=== PATIENT | female | born 1995 | race Caucasian/White ===

== ENCOUNTER 2016-07-29 10:07 | Emergency (ER) | payer MEDICAID ==
[~2016-07-29] VITALS: Ht 160 cm; Wt 54.4 kg
[~2016-07-29 10:07] MED LIST: COUGH SYRUP; TAPAZOLE5 MG PO
[2016-07-29 10:12] VITALS: BP 130/87
--- NOTE | 2016-07-29 10:23 | NUR ---
PATIENT PRESENTS TO ED WITH UNDER EYELID REDNESS, BURNING SENSATION, SNEEZING . PT DENIES INJURY, VISUAL CHANGES, DISCHARGE . DENIES N/V/D; SKIN IS PINK/WARM/DRY; AAOX4 WITH EVEN AND STEADY GAIT; LUNGS CLEAR BL; HR EVEN AND REGULAR; PT DENIES ANY FEVER, CP, SOB, OR COUGH AT THIS TIME; PATIENT STATES PAIN OF 3/10 AT THIS TIME; VSS; PATIENT POSITIONED FOR COMFORT; HOB ELEVATED; BEDRAILS UP X2; BED DOWN. ER MD MADE AWARE OF PT STATUS.
[2016-07-29 10:54] VITALS: BP 134/84
--- NOTE | 2016-07-29 10:54 | NUR ---
Patient discharged with v/s stable. PT STATES BASELINE HR TACHYCARDIC D/T HYPOTHYROIDISM, BUT DENIES ANY ACUTE DISTRESS AT THIS TIMEWritten and verbal after care instructions given and explained. Patient alert, oriented and verbalized understanding of instructions. Ambulatory with steady gait. All questions addressed prior to discharge. ID band removed. Patient advised to follow up with PMD. Rx of ARTIFICIAL TEARS & PEDRO 60MG TAB given. Patient educated on indication of medication including possible reaction and side effects. Opportunity to ask questions provided and answered.
== END 2016-07-29 10:54 | disposition home or self-care (01) ==
LOC: MED 10:08
DX: H10.13 Acute atopic conjunctivitis, bilateral (principal); R03.0 Elevated blood-pressure reading, without diagnosis of hypertension; E03.9 Hypothyroidism, unspecified

== ENCOUNTER 2016-12-24 23:36 | Emergency (ER) | payer MEDICAID ==
[~2016-12-24] VITALS: Ht 160 cm; Wt 54.9 kg
[~2016-12-24 23:36] MED LIST changes: -COUGH SYRUP; +TAP5 PO; -TAPAZOLE5 MG PO
[2016-12-24 23:41] VITALS: BP 132/79
--- NOTE | 2016-12-25 00:14 | NUR ---
Patient to OF.
--- NOTE | 2016-12-25 00:43 | NUR ---
Dr. Fox evaluating patient.
[2016-12-25 01:03] LABS: APPEARANCE,URINE CLEAR (CLEAR); BILIRUBIN,URINE NEGATIVE (NEGATIVE); BLOOD, URINE NEGATIVE (NEGATIVE); COLOR,URINE YELLOW (YELLOW); LEUKOCYTE ESTERASE ,URINE NEGATIVE (NEGATIVE); NITRITE, URINE NEGATIVE (NEGATIVE); UGLUCOSE NEGATIVE (NEGATIVE)
[2016-12-25 01:18] LABS: RBC,URINE 0-5 (RARE) /HPF (0-5); WBC,URINE 0-5 (RARE) /HPF (0-5)
[2016-12-25 02:05] VITALS: BP 125/82
--- NOTE | 2016-12-25 02:05 | NUR ---
Patient discharged with v/s stable. Written and verbal after care instructions given and explained. Patient alert, oriented and verbalized understanding of instructions. Ambulatory with steady gait. All questions addressed prior to discharge. ID band removed. Patient advised to follow up with PMD. Rx of Flagyl given. Patient educated on indication of medication including possible reaction and side effects. Opportunity to ask questions provided and answered.
[2016-12-28 09:28] LABS: CHLAMYDIA TRACHOMATIS AMP DNA Negative (Negative)
== END 2016-12-25 02:05 | disposition home or self-care (01) ==
LOC: MED 23:36
DX: N76.0 Acute vaginitis (principal); B96.89 Other specified bacterial agents as the cause of diseases classified elsewhere
CPT/HCPCS: 36415; 81001; 81025; 87086; 87491; 99284

== ENCOUNTER 2017-05-31 08:06 | Emergency (ER) | payer MEDICAID ==
[~2017-05-31] VITALS: Ht 160 cm; Wt 57.6 kg
[2017-05-31 08:13] VITALS: BP 118/76
--- NOTE | 2017-05-31 08:24 | NUR ---
Pt placed in chair E.
--- NOTE | 2017-05-31 08:26 | NUR ---
21/f BIB SELF C/O PAINFUL URINATION X1 1/2 WEEK ; WITH DRIBBLING AND RETENTION. PT STATES DISCOMFORT TO PERINEUM AT THIS TIME. HX HYPERTHYROIDISM. DENIES N/V/D; SKIN IS PINK/WARM/DRY; AAOX4 WITH EVEN AND STEADY GAIT; LUNGS CLEAR BL. PATIENT STATES PAIN OF 0/10 AT THIS TIME.
--- NOTE | 2017-05-31 08:43 | NUR ---
Patient being evaluated by DR ACOSTA at [facility].
[2017-05-31 08:54] VITALS: BP 117/93
--- NOTE | 2017-05-31 08:54 | NUR ---
Patient discharged with v/s stable. Written and verbal after care instructions given and explained. Patient alert, oriented and verbalized understanding of instructions. Ambulatory with steady gait. All questions addressed prior to discharge. ID band removed. Patient advised to follow up with PMD. Rx of PYRIDIUM & CIPRO given. Patient educated on indication of medication including possible reaction and side effects. Opportunity to ask questions provided and answered.
== END 2017-05-31 08:54 | disposition home or self-care (01) ==
LOC: MED 08:06
DX: N39.0 Urinary tract infection, site not specified (principal); E05.90 Thyrotoxicosis, unspecified without thyrotoxic crisis or storm
CPT/HCPCS: 81002; 81025; 87086; 87186; 99283

== ENCOUNTER 2017-10-03 00:24 | Emergency (ER) | payer MEDICAID ==
[~2017-10-03] VITALS: Ht 160 cm; Wt 58.1 kg
[2017-10-03 00:27] VITALS: BP 129/71
[2017-10-03] MEDS ORDERED: KETOROLAC 30 MG/ML VIAL IM ONE (01:35)
[2017-10-03 02:28] VITALS: BP 127/76
== END 2017-10-03 02:28 | disposition home or self-care (01) ==
LOC: MED 00:24
DX: S83.91XA Sprain of unspecified site of right knee, initial encounter (principal); S63.501A Unspecified sprain of right wrist, initial encounter; E05.90 Thyrotoxicosis, unspecified without thyrotoxic crisis or storm; W18.40XA Slipping, tripping and stumbling without falling, unspecified, initial encounter; Y93.89 Activity, other specified; Y92.098 Other place in other non-institutional residence as the place of occurrence of the external cause; Y99.8 Other external cause status
CPT/HCPCS: 73110; 73562; 96372; 99284; J1885; Q0092

== ENCOUNTER 2017-10-17 23:32 | Emergency (ER) | payer MEDICAID ==
[~2017-10-17] VITALS: Ht 160 cm; Wt 55.8 kg
[2017-10-17 23:38] VITALS: BP 126/74
--- NOTE | 2017-10-17 23:42 | NUR ---
PT AMBULATED TO LOBBY WITH VSS.
--- NOTE | 2017-10-18 00:17 | NUR ---
AMBULATED TO ER BED 2
--- NOTE | 2017-10-18 00:17 | NUR ---
PT PRESENTED ER WITH RASH AND SWELLING ON FINGERS. PT STATED THAT SHE GOT HER NAILS DONE RECENTLY AND FELT SOME ITCHING ON HER FINGERS. PT HAD SOME BURNING AND ITCHING X 3 DAYS. PT HAS KNA AND MEDICAL HX OF HYPERTHYRIODISM; SKIN IS PINK/WARM/DRY; AAOX4 WITH EVEN AND STEADY GAIT; PATIENT STATES PAIN OF 0/10 AT THIS TIME; VSS; PATIENT POSITIONED FOR COMFORT; HOB ELEVATED; BEDRAILS UP X2; BED DOWN. ER MD MADE AWARE OF PT STATUS.
[2017-10-18 01:28] VITALS: BP 125/72
--- NOTE | 2017-10-18 01:28 | NUR ---
Patient discharged with v/s stable. Written and verbal after care instructions given and explained. Patient alert, oriented and verbalized understanding of instructions. Ambulatory with steady gait. All questions addressed prior to discharge. ID band removed. Patient advised to follow up with PMD. Rx of KEFLEX, [facility] HYDROCORTISONE given. Patient educated on indication of medication including possible reaction and side effects. Opportunity to ask questions provided and answered.
== END 2017-10-18 01:28 | disposition home or self-care (01) ==
LOC: MED 23:32
DX: L25.9 Unspecified contact dermatitis, unspecified cause (principal); E05.90 Thyrotoxicosis, unspecified without thyrotoxic crisis or storm; Z79.899 Other long term (current) drug therapy
CPT/HCPCS: 81002; 81025; 99283

== ENCOUNTER 2019-01-31 22:32 | Emergency (ER) | payer MEDICAID ==
[~2019-01-31] VITALS: Ht 160 cm; Wt 55.8 kg
[2019-01-31 22:39] VITALS: BP 126/83
--- NOTE | 2019-01-31 22:41 | NUR ---
PT AMBULATED TO ER BED 9
--- NOTE | 2019-01-31 22:44 | NUR ---
DR. LAGUNAS BEDSIDE EVALUATING PT
--- NOTE | 2019-01-31 22:46 | NUR ---
PATIENT PRESENTS TO ED PAIN TO RIGHT EAR. PT STATES PAIN IS ON HER TOP EARING. PT STATES IT MAY HAVE GOTTEN CAUGHT ON SOMETHING. EAR IS RED AND INFLAMED. PT DENIES RINGING OR HEARING LOSS. DENIES N/V/D; SKIN IS PINK/WARM/DRY; AAOX4 WITH EVEN AND STEADY GAIT; LUNGS CLEAR BL; HR EVEN AND REGULAR; PT DENIES ANY FEVER, CP, SOB, OR COUGH AT THIS TIME; PATIENT STATES PAIN OF 8/10 AT THIS TIME; VSS; PATIENT POSITIONED FOR COMFORT; HOB ELEVATED; BED DOWN. ER MD MADE AWARE OF PT STATUS.
[2019-01-31 22:56] VITALS: BP 126/83
--- NOTE | 2019-01-31 22:57 | NUR ---
Patient discharged with v/s stable. Written and verbal after care instructions given and explained. Patient alert, oriented and verbalized understanding of instructions. Ambulatory with steady gait. All questions addressed prior to discharge. ID band removed. Patient advised to follow up with PMD. Rx of MOTRIN AND KEFLEX given. Patient educated on indication of medication including possible reaction and side effects. Opportunity to ask questions provided and answered.
== END 2019-01-31 22:57 | disposition home or self-care (01) ==
LOC: MED 22:32
DX: H60.11 Cellulitis of right external ear (principal); E05.90 Thyrotoxicosis, unspecified without thyrotoxic crisis or storm; Z79.899 Other long term (current) drug therapy
CPT/HCPCS: 99283

== ENCOUNTER 2019-02-26 05:48 | Emergency (ER) | payer MEDICAID ==
[~2019-02-26] VITALS: Ht 160 cm; Wt 55.8 kg
[2019-02-26 05:50] VITALS: BP 127/80
--- NOTE | 2019-02-26 05:50 | NUR ---
TO BED # 04 AMBULATORY
--- NOTE | 2019-02-26 05:55 | NUR ---
23 Y/O FEMALE C/O URINARY BURNING, LOWER ABD PAIN X YESTERDAY. PT STATES SHE HAS URINARY FREQ, BURNING SENSATION, LOWER ABD AND ABCK PAIN. DENIES ANY FEVER,CHILLS,N,V,D, OR BLOOD IN URINE. PT STATES SHE TOOK AZO OTC 1HR AGO. RATES PAIN LEVEL 8/10 AND DESCRIBES IT BURNING. A & O X4. STEADY GAIT. VSS. NKA. PMH: HYPERTHYROID.
--- NOTE | 2019-02-26 06:05 | NUR ---
ERMD AT BEDSIDE TO EVAL PT.
[2019-02-26] MEDS ORDERED: KETOROLAC 60 MG/2 ML VIAL IM ONE (06:10)
[2019-02-26 06:31] VITALS: BP 127/80
--- NOTE | 2019-02-26 06:31 | NUR ---
Patient discharged with v/s stable. Written and verbal after care instructions given and explained. Patient alert, oriented and verbalized understanding of instructions. Ambulatory with steady gait. All questions addressed prior to discharge. ID band removed. Patient advised to follow up with PMD. Rx of CIPRO, MOTRIN, AND PYRIDIUM given. Patient educated on indication of medication including possible reaction and side effects. Opportunity to ask questions provided and answered.
== END 2019-02-26 06:31 | disposition home or self-care (01) ==
LOC: MED 05:48
DX: N39.0 Urinary tract infection, site not specified (principal); E11.9 Type 2 diabetes mellitus without complications; Z79.899 Other long term (current) drug therapy
CPT/HCPCS: 96372; 99283; J1885

== ENCOUNTER 2019-03-29 22:33 | Emergency (ER) | payer MEDICAID ==
[~2019-03-29] VITALS: Ht 160 cm; Wt 55.8 kg
[2019-03-29 22:55] VITALS: BP 122/75
--- NOTE | 2019-03-29 22:58 | NUR ---
THROAT SWAB SENT TO LAB FOR STREP
--- NOTE | 2019-03-29 22:58 | NUR ---
TO LOBBY A/W BED , AMBULATORY
--- NOTE | 2019-03-30 02:01 | NUR ---
PATIENT ELOPED FROM FACILITY. DID NOT WANT TO WATI AND LEFT TO HOME. DISCHARGE INSTRUCTIONS NOT GIVEN TO PATIENT. DR. HARRINGTON NOTIFIED.
--- NOTE | 2019-03-30 02:01 | NUR ---
PATIENT STATES SHE IS UNWILLING TO WAIT ANY LONGER AND LEFT THE EMERGENCY DEPARTMENT AT THIS TIME.
== END 2019-03-30 02:01 | disposition left against medical advice (07) ==
LOC: MED 22:33
DX: M54.2 Cervicalgia (principal); E05.90 Thyrotoxicosis, unspecified without thyrotoxic crisis or storm; Z79.899 Other long term (current) drug therapy
CPT/HCPCS: 87081; 99283

== ENCOUNTER 2019-05-17 02:28 | Emergency (ER) | payer MEDICAID ==
[~2019-05-17] VITALS: Ht 160 cm; Wt 55.8 kg
[2019-05-17 02:35] VITALS: BP 125/77
--- NOTE | 2019-05-17 02:35 | NUR ---
PT ASSESSMENT COMPLETE. PT SEATED UPRIGHT IN BED. WILL CONTINUE TO MONITOR
--- NOTE | 2019-05-17 02:35 | NUR ---
PT AMBULATED BED #11.
[2019-05-17 03:02] LABS: APPEARANCE,URINE CLOUDY (CLEAR); BILIRUBIN,URINE NEGATIVE (NEGATIVE); BLOOD, URINE 3+ (NEGATIVE); COLOR,URINE YELLOW (YELLOW); LEUKOCYTE ESTERASE ,URINE 3+ (NEGATIVE); NITRITE, URINE NEGATIVE (NEGATIVE); UGLUCOSE NEGATIVE (NEGATIVE)
[2019-05-17 03:33] LABS: RBC,URINE TOO NUMEROUS TO COUN /HPF (0-5); WBC,URINE TOO MANY TO COUNT /HPF (0-5)
[2019-05-17] MEDS ORDERED: cefTRIAXone 1,000 MG in LIDOCAINE MPF 1% 2.1 ML IM ONE (03:35)
[2019-05-17] MEDS ORDERED: cefTRIAXone 1,000 MG VIAL ONE (03:41)
[2019-05-17] MEDS ORDERED: LIDOCAINE MPF 1% 5 ML ONE (03:41)
--- NOTE | 2019-05-17 03:57 | NUR ---
Patient discharged with v/s stable. Written and verbal after care instructions given and explained. Patient alert, oriented and verbalized understanding of instructions. Ambulatory with steady gait. All questions addressed prior to discharge. ID band removed. Patient advised to follow up with PMD. Rx of PYRIDIUM AND KEFLEX given. Patient educated on indication of medication including possible reaction and side effects. Opportunity to ask questions provided and answered.
== END 2019-05-17 03:57 | disposition home or self-care (01) ==
LOC: MED 02:28
DX: N39.0 Urinary tract infection, site not specified (principal); Z79.899 Other long term (current) drug therapy
CPT/HCPCS: 81001; 87086; 96372; 99283; J0696; J2001

== ENCOUNTER 2019-06-28 07:40 | Emergency (ER) | payer MEDICAID ==
[~2019-06-28] VITALS: Ht 160 cm; Wt 58.1 kg
[2019-06-28 07:46] VITALS: BP 142/83
--- NOTE | 2019-06-28 07:47 | NUR ---
PT AMBULATED TO BED 11, GIVEN URINE CUP.
--- NOTE | 2019-06-28 07:50 | NUR ---
23 Y/O FEMALE FROM HOME C/O NAUSEA AND VOMITING X 2 DAYS. STATES 8/10 CRAMPING PAIN TO ABD. DENIES DIARRHEA. ABD SOFT, FLAT, NONTENDER TO PALP. BOWEL SOUNDS PRESENT. STATES SHE HAS HAD LINGERING HEADACHE TO THE RT SIDE OF HEAD X 2 WKS. DENIES BLURRED VISION. LMP 06/27/19. HOB ELEVATED, X 1 SIDE RAIL RAISED. VSS MEDHX: HYPOTHYROIDISM ALLERGIES: NKA
--- NOTE | 2019-06-28 07:56 | NUR ---
DR KATE EXAMINING PT
[2019-06-28] MEDS ORDERED: ONDANSETRON 4 MG ODT PO ONE (08:00)
[2019-06-28] MEDS ORDERED: SUMAtriptan 6 MG/0.5 ML VIAL SUBQ ONE (08:00)
--- NOTE | 2019-06-28 08:32 | NUR ---
PT STATES SHE VOMITED AFTER RECEIVING MEDICATION. DENIES HEADACHE AT THIS TIME. DR KATE MADE AWARE
[2019-06-28] MEDS ORDERED: PROCHLORPERAZINE 10 MG/2 ML VIAL IVP ONE (08:35)
[2019-06-28] MEDS ORDERED: KETOROLAC 30 MG/ML VIAL IVP ONE (08:35)
[2019-06-28] MEDS ORDERED: NACL 0.9% 500 ML IV ONE (08:35)
--- NOTE | 2019-06-28 09:00 | NUR ---
DENIES NAUSEA/VOMITING AND HEADACHE AT THIS TIME
[2019-06-28 09:03] VITALS: BP 134/79
== END 2019-06-28 09:03 | disposition home or self-care (01) ==
LOC: MED 07:40
DX: G43.909 Migraine, unspecified, not intractable, without status migrainosus (principal); E03.9 Hypothyroidism, unspecified; Z79.899 Other long term (current) drug therapy
CPT/HCPCS: 81002; 81025; 96372; 96374; 96375; 99284; J0780; J1885; J3030; J7030; Q0162

== ENCOUNTER 2019-07-28 00:32 | Emergency (ER) | payer MEDICAID ==
[~2019-07-28] VITALS: Ht 157.5 cm; Wt 57.6 kg
[2019-07-28 00:40] VITALS: BP 139/88
--- NOTE | 2019-07-28 00:50 | NUR ---
PT EVALUATED BY ERMD. NO NURSING CARE PROVIDED.
--- NOTE | 2019-07-28 00:58 | NUR ---
Patient discharged with v/s stable. Written and verbal after care instructions given and explained. Patient verbalized understanding. Ambulatory with steady gait. All questions addressed prior to discharge. Advised to follow up with PMD.
== END 2019-07-28 00:58 | disposition home or self-care (01) ==
LOC: MED 00:32
DX: E05.90 Thyrotoxicosis, unspecified without thyrotoxic crisis or storm (principal); Z34.91 Encounter for supervision of normal pregnancy, unspecified, first trimester; Z79.899 Other long term (current) drug therapy
CPT/HCPCS: 99281

== ENCOUNTER 2019-08-20 20:59 | Emergency (ER) | payer MEDICAID ==
[~2019-08-20] VITALS: Ht 160 cm; Wt 57.6 kg
[2019-08-20 21:05] VITALS: BP 139/76
--- NOTE | 2019-08-20 21:30 | NUR ---
PT AMBULATED TO BED 12 WITH STEADY GAIT.
--- NOTE | 2019-08-20 21:50 | NUR ---
23 Y/O FEMALE PRESENTS TO ER WITH C/O EPIGASTRIC PAIN X 2 HRS 5/10 CRAMPING PAIN. PT STATES SHE WAS EATING A SNACK, AND BEGAN TO FEEL PAIN SHORTLY AFTER. PT IS 7 WEEKS . DENIES NAUSEA, VOMITING, DIARRHEA, SOB, COUGH. R/R EQUAL, AND UNLABORED. VSS. SIDE RAIL X1, BED IN LOW POSITION, WILL CONTINUE TO MONITOR. NKDA PMH: HYPERTHYROIDISM
[2019-08-20 22:00] LABS: BASOPHILS % (AUTO) 0.2 % (0.0-2.0); EOSINOPHILS % (AUTO) 0.1 % (0.0-4.0); HEMATOCRIT 39.9 % (36-48); HEMOGLOBIN 13.4 g/dL (12.0-16.0); LYMPHOCYTES # (AUTO) 1.9 K/uL (2.5-16.5); LYMPHOCYTES % (AUTO) 20.8 % (20.5-51.1); MEAN CORPUSCULAR HEMOGLOBIN 28 pg (27-31); MEAN CORPUSCULAR HGB CONC 34 g/dL (33-37); MEAN CORPUSCULAR VOLUME 83.8 fL (80-94); MONOCYTES # (AUTO) 0.8 K/uL (0.8-1.0); MONOCYTES % (AUTO) 8.5 % (1.7-9.3); NEUTROPHILS # (AUTO) 6.6 K/uL (1.8-7.7); NEUTROPHILS % (AUTO) 70.4 % (42.2-75.2); PLATELET COUNT (AUTO) 220 K/uL (140-450); RED BLOOD CELL COUNT(AUTO) 4.76 MIL/uL (4.20-5.40); RED CELL DISTRIBUTION WIDTH 13.9 % (11.6-13.7); WHITE BLOOD COUNT (AUTO) 9.4 K/uL (4.8-10.8)
--- NOTE | 2019-08-20 22:00 | NUR ---
US AT BEDSIDE
[2019-08-20 22:26] LABS: APPEARANCE,URINE CLEAR (CLEAR); BILIRUBIN,URINE NEGATIVE (NEGATIVE); BLOOD, URINE 1+ (NEGATIVE); COLOR,URINE YELLOW (YELLOW); LEUKOCYTE ESTERASE ,URINE NEGATIVE (NEGATIVE); NITRITE, URINE NEGATIVE (NEGATIVE); UGLUCOSE NEGATIVE (NEGATIVE)
[2019-08-20] MEDS ORDERED: FUROSEMIDE 100 MG/10 ML VIAL IVP ONE (22:45)
[2019-08-20 23:01] LABS: WBC,URINE 0-5 /HPF (0-5)
[2019-08-20 23:03] LABS: CARBON DIOXIDE 21.7 mmol/L (21-32); CREATININE 0.4 mg/dL (0.6-1.3); POTASSIUM 3.7 mmol/L (3.5-5.1)
[2019-08-21 00:12] VITALS: BP 139/76
== END 2019-08-21 00:08 | disposition home or self-care (01) ==
LOC: MED 20:59
DX: O26.891 Other specified pregnancy related conditions, first trimester (principal); R10.13 Epigastric pain; E07.9 Disorder of thyroid, unspecified; Z79.899 Other long term (current) drug therapy
CPT/HCPCS: 36415; 76801; 80048; 81001; 81025; 84702; 85025; 86900; 86901; 99284; Q0092

== ENCOUNTER 2020-10-13 18:30 | Emergency (ER) | payer MEDICAID ==
[~2020-10-13] VITALS: Ht 160 cm; Wt 63.5 kg
[2020-10-13 19:00] VITALS: BP 130/77
--- NOTE | 2020-10-14 01:45 | NUR ---
CALLED PT TO BED, PT HAS NO ANSWER. JOSE MADE AWARE
--- NOTE | 2020-10-14 01:55 | NUR ---
CALLED PT TO BED, PT HAS NO ANSWER. JOSE MADE AWARE
--- NOTE | 2020-10-14 02:00 | NUR ---
LEFT WITHOUT BEING SEEN BY DOCTOR
== END 2020-10-14 02:00 | disposition left against medical advice (07) ==
LOC: MED 18:30
DX: R10.11 Right upper quadrant pain (principal); Z53.21 Procedure and treatment not carried out due to patient leaving prior to being seen by health care provider
CPT/HCPCS: 81002; 81025; 99281; 99283

== ENCOUNTER 2020-11-30 08:54 | Emergency (ER) | payer MEDICAID ==
[~2020-11-30] VITALS: Ht 160 cm; Wt 63.0 kg
[2020-11-30 08:58] VITALS: BP 123/75
--- NOTE | 2020-11-30 09:05 | NUR ---
Patient ambulated to bed 07 with steady/even gait.
--- NOTE | 2020-11-30 09:11 | NUR ---
24 y/o F BIB self from home c/o epigastric pain x 2 days. Patient presents A&Ox4, ambulatory, reports pain began 2 days ago and states worsens after meals. Patient states 8/10, cramping/intermittent, non-radiating pain. Patient reports pain worsening after meals. Denies nausea, vomiting, diarrhea, chest pain, SOB, back pain, dysuria, urinary symptoms, fever, chills. States Pepto Bismol yesterday with minor relief to symptoms. Pt placed into a gown. VSS; respirations even/unlabored. Pt states [facility] facilit[facility] appt 12/30/2020. Bed locked in lowest position, side rails x 1, call light in reach. PMH: hyperthyroidism Meds/Allergies: Denies Sx:
[2020-11-30] MEDS ORDERED: ALUMINUM HYD/MAG/SIMETHICONE 30 ML UDC ONE (09:49)
[2020-11-30] MEDS ORDERED: DICYCLOMINE HCL LIQUID 10 MG/5 ML UDC ONE (09:49)
--- NOTE | 2020-11-30 09:54 | NUR ---
Lab at bedside
--- NOTE | 2020-11-30 09:54 | NUR ---
EMT at bedside for EKG
[2020-11-30] MEDS: DICYCLOMINE HCL LIQUID 20 MG, ALUMINUM HYD/MAG/SIMETHICONE 30 ML, LIDOCAINE VISCOUS 2% ... PO ONE ×3 (09:55)
[2020-11-30 10:05] LABS: BILIRUBIN,URINE NEGATIVE (NEGATIVE); BLOOD, URINE 2+ (NEGATIVE); COLOR,URINE YELLOW (YELLOW); LEUKOCYTE ESTERASE ,URINE 2+ (NEGATIVE); NITRITE, URINE NEGATIVE (NEGATIVE); UGLUCOSE NEGATIVE (NEGATIVE)
[2020-11-30 10:06] LABS: BASOPHILS % (AUTO) 0.3 % (0.0-2.0); HEMATOCRIT 44.3 % (36-48); HEMOGLOBIN 15.1 g/dL (12.0-16.0); LYMPHOCYTES # (AUTO) 1.2 K/uL (2.5-16.5); LYMPHOCYTES % (AUTO) 22.4 % (20.5-51.1); MEAN CORPUSCULAR HEMOGLOBIN 29 pg (27-31); MEAN CORPUSCULAR HGB CONC 34 g/dL (33-37); MONOCYTES # (AUTO) 0.4 K/uL (0.8-1.0); MONOCYTES % (AUTO) 8.1 % (1.7-9.3); NEUTROPHILS # (AUTO) 3.8 K/uL (1.8-7.7); NEUTROPHILS % (AUTO) 69.2 % (42.2-75.2); PLATELET COUNT (AUTO) 250 K/uL (140-450); RED BLOOD CELL COUNT(AUTO) 5.21 MIL/uL (4.20-5.40); RED CELL DISTRIBUTION WIDTH 13.1 % (11.6-13.7); WHITE BLOOD COUNT (AUTO) 5.4 K/uL (4.8-10.8)
[2020-11-30 10:13] LABS: APPEARANCE,URINE CLOUDY (CLEAR)
[2020-11-30 10:35] LABS: ALBUMIN 3.9 g/dL (3.4-5.0); AMYLASE 33 U/L (25-115); ANION GAP 13.4 (8-16); ASPARTATE AMINOTRANSFERASE 22 U/L (15-37); CHLORIDE 104 mmol/L (98-107); CREATININE 0.4 mg/dL (0.6-1.3); FREE T4 (FREE THYROXINE) 2.04 ng/dL (0.76-1.46); GFR ARICAN-AMERICAN 252 mL/min (>90); GLUCOSE 102 mg/dL (74-106); LIPASE 61 U/L (73-393); POTASSIUM 4.4 mmol/L (3.5-5.1); SODIUM SERUM 140 mmol/L (136-145); THYROID STIMULATING HORMONE < 0.01 uIU/mL (0.34-3.74); TOTAL BILIRUBIN 0.6 mg/dL (0.0-1.0); UREA NITROGEN, BLOOD 8 mg/dL (7-18)
--- NOTE | 2020-11-30 11:12 | NUR ---
EMT at bedside for repeat EKG
--- NOTE | 2020-11-30 11:22 | NUR ---
Dr. López is reevaluating patient at bedside
[2020-11-30] MEDS ORDERED: ALBU0.0912 IH (11:29)
[2020-11-30 11:32] VITALS: BP 117/76
== END 2020-11-30 11:40 | disposition home or self-care (01) ==
LOC: MED 08:54
DX: R10.13 Epigastric pain (principal); E07.9 Disorder of thyroid, unspecified
CPT/HCPCS: 36415; 80053; 81001; 81025; 82150; 83690; 84439; 84443; 84484; 85025; 87086; 93005; 99285

== ENCOUNTER 2022-01-16 04:38 | Emergency (ER) | payer MEDICAID ==
[~2022-01-16] VITALS: Ht 160 cm; Wt 66.7 kg
[2022-01-16 04:42] VITALS: BP 108/73
--- NOTE | 2022-01-16 04:45 | NUR ---
PT TO BED 11
[2022-01-16] MEDS ORDERED: FAMOTIDINE 20 MG TAB PO ONE (05:05)
[2022-01-16] MEDS ORDERED: ONDANSETRON 4 MG ODT PO ONE (05:05)
[2022-01-16] MEDS ORDERED: FAMO-90 PO (05:34)
[2022-01-16] MEDS ORDERED: ONDA-188 SL (05:34)
[2022-01-16 05:49] VITALS: BP 108/73
--- NOTE | 2022-01-16 05:49 | NUR ---
Patient discharged with v/s stable. Written and verbal after care instructions given and explained. Patient alert, oriented and verbalized understanding of instructions. Ambulatory with steady gait. All questions addressed prior to discharge. ID band removed. Patient advised to follow up with PMD. Rx of ZOFRAN, PEPCID given. Patient educated on indication of medication including possible reaction and side effects. Opportunity to ask questions provided and answered.
== END 2022-01-16 05:49 | disposition home or self-care (01) ==
LOC: MED 04:38
DX: K52.9 Noninfective gastroenteritis and colitis, unspecified (principal); E03.9 Hypothyroidism, unspecified
CPT/HCPCS: 81002; 81025; 99284; Q0162

== ENCOUNTER 2022-01-18 13:01 | Emergency (ER) | payer MEDICAID ==
[~2022-01-18] VITALS: Ht 160 cm; Wt 64.9 kg
[~2022-01-18 13:01] MED LIST changes: +FAMO-90 PO; +ONDA-188 SL
[2022-01-18 13:25] VITALS: BP 116/75
--- NOTE | 2022-01-18 14:57 | NUR ---
26Y/O FEMALE PRESENTS TO ED WITH C/O WEAKNESS/DIZZINESS AND N/V X3DAYS. PT REPORTS BEING SEEN IN ED ON TUESDAY AND D/C'D WITH RX OF ZOFRAN AND PEPCID. PT REPORTS RETURNING TODAY FOR WORSENING SYMPTOMS, STATES FEELING NAUSEA WITH NO EPISODES OF VOMITING TODAY. PT DENIES ABD PAIN, UTI SYMPTOMS OR DIARRHEA.
[2022-01-18] MEDS ORDERED: CIPR500T4 PO (15:19)
[2022-01-18] MEDS ORDERED: ACET-10509 PO (15:19)
[2022-01-18] MEDS ORDERED: MAG355OR2 PO (15:19)
--- NOTE | 2022-01-18 15:37 | NUR ---
SWABS WALKED AND HANDED TO LAB
[2022-01-18 15:44] VITALS: BP 105/73
--- NOTE | 2022-01-18 15:44 | NUR ---
Patient discharged with v/s stable. Written and verbal after care instructions about Viral gastroenteritis, viral illness given and explained. Patient alert, oriented and verbalized understanding of instructions. Ambulatory with steady gait. All questions addressed prior to discharge. ID band removed. Patient advised to follow up with PMD. Rx of TYLENOL, CIPRO AND MAALOX given. Patient educated on indication of medication including possible reaction and side effects. Opportunity to ask questions provided and answered.
== END 2022-01-18 15:44 | disposition home or self-care (01) ==
LOC: MED 13:01
DX: K52.9 Noninfective gastroenteritis and colitis, unspecified (principal); Z20.822 Contact with and (suspected) exposure to COVID-19; B34.9 Viral infection, unspecified; E07.9 Disorder of thyroid, unspecified; Z79.899 Other long term (current) drug therapy
CPT/HCPCS: 81002; 81025; 99283

== ENCOUNTER 2022-07-05 21:29 | Emergency (ER) | payer MEDICAID ==
[~2022-07-05] VITALS: Ht 160 cm; Wt 64.9 kg
[~2022-07-05 21:29] MED LIST changes: +ACET-10509 PO; +CIPR500T4 PO; +MAG355OR2 PO
[2022-07-05 22:01] VITALS: BP 115/79
[2022-07-05] MEDS ORDERED: KETOROLAC 30 MG/ML VIAL IM ONE (22:30)
[2022-07-05 23:00] LABS: BASOPHILS % (AUTO) 0.2 % (0.0-2.0); EOSINOPHILS # (AUTO) 0.1 K/uL (0-0.4); EOSINOPHILS % (AUTO) 0.6 % (0.0-4.0); HEMATOCRIT 35.6 % (36-48); HEMOGLOBIN 11.6 g/dL (12.0-16.0); LYMPHOCYTES # (AUTO) 1.2 K/uL (2.5-16.5); LYMPHOCYTES % (AUTO) 10.9 % (20.5-51.1); MEAN CORPUSCULAR HEMOGLOBIN 26 pg (27-31); MEAN CORPUSCULAR HGB CONC 33 g/dL (33-37); MEAN CORPUSCULAR VOLUME 78.7 fL (80-94); MONOCYTES # (AUTO) 0.5 K/uL (0.8-1.0); MONOCYTES % (AUTO) 4.2 % (1.7-9.3); NEUTROPHILS # (AUTO) 9.4 K/uL (1.8-7.7); NEUTROPHILS % (AUTO) 84.1 % (42.2-75.2); PLATELET COUNT (AUTO) 241 K/uL (140-450); RED BLOOD CELL COUNT(AUTO) 4.53 MIL/uL (4.20-5.40); RED CELL DISTRIBUTION WIDTH 15.9 % (11.6-13.7); WHITE BLOOD COUNT (AUTO) 11.1 K/uL (4.8-10.8)
--- NOTE | 2022-07-05 23:02 | NUR ---
pt taken to CT
--- NOTE | 2022-07-05 23:05 | NUR ---
Patient resting in bed, A/Ox4, chest rise and fall symmetrical, no s/s of distress, on monitor.
--- NOTE | 2022-07-05 23:15 | NUR ---
ER physician asessing patient.
[2022-07-05 23:30] LABS: APPEARANCE,URINE SL CLOUDY (CLEAR); BILIRUBIN,URINE NEGATIVE (NEGATIVE); BLOOD, URINE 3+ (NEGATIVE); COLOR,URINE YELLOW (YELLOW); LEUKOCYTE ESTERASE ,URINE TRACE (NEGATIVE); NITRITE, URINE NEGATIVE (NEGATIVE); PH,URINE 5.5 (5.0-9.0); UGLUCOSE NEGATIVE (NEGATIVE)
[2022-07-05 23:38] LABS: RBC,URINE 20-50 /HPF (0-5); WBC,URINE 0-5 /HPF (0-5)
[2022-07-05] MEDS ORDERED: KETOROLAC 30 MG/ML VIAL ONE (23:38)
[2022-07-05] MEDS ORDERED: ONDANSETRON 4 MG ODT PO SCH (23:40)
[2022-07-05 23:41] LABS: ALBUMIN 3.9 g/dL (3.4-5.0); ANION GAP 12.6 (8-16); CARBON DIOXIDE 27.4 mmol/L (21-32); CREATININE 0.7 mg/dL (0.6-1.3); TOTAL BILIRUBIN 0.4 mg/dL (0.0-1.0)
[2022-07-05] MEDS ORDERED: ONDA-188 SL (23:55)
[2022-07-05] MEDS ORDERED: IBUP-2213 PO (23:55)
--- NOTE | 2022-07-06 00:03 | NUR ---
Patient resting in bed, A/Ox4, chest rise and fall symmetrical, no c/o pain or s/s of distress, on monitor.
[2022-07-06 00:08] VITALS: BP 119/74
== END 2022-07-06 00:08 | disposition home or self-care (01) ==
LOC: MED 21:29
DX: R10.9 Unspecified abdominal pain (principal); R31.9 Hematuria, unspecified; M54.50 Low back pain, unspecified; E03.9 Hypothyroidism, unspecified; Z79.899 Other long term (current) drug therapy
CPT/HCPCS: 36415; 74176; 80053; 81001; 81025; 83690; 85025; 96372; 99285; J1885

== ENCOUNTER 2022-12-13 11:08 | Emergency (ER) | payer MEDICAID ==
[~2022-12-13] VITALS: Ht 160 cm; Wt 63.5 kg
[~2022-12-13 11:08] MED LIST changes: +IBUP-2213 PO
[2022-12-13 11:30] VITALS: BP 119/76; PULSE 78; RESP 18; TEMP 98.2; O2SAT 98
[2022-12-13] MEDS ORDERED: NACL 0.9% 1,000 ML IV ONE (12:45)
[2022-12-13] MEDS ORDERED: ONDANSETRON 4 MG/2 ML VIAL IVP ONE (12:45)
[2022-12-13 13:16] LABS: BASOPHILS % (AUTO) 0.6 % (0.0-2.0); EOSINOPHILS # (AUTO) 0.1 K/uL (0-0.4); EOSINOPHILS % (AUTO) 0.9 % (0.0-4.0); HEMATOCRIT 35.4 % (36-48); HEMOGLOBIN 11.4 g/dL (12.0-16.0); LYMPHOCYTES # (AUTO) 1.2 K/uL (2.5-16.5); LYMPHOCYTES % (AUTO) 18.2 % (20.5-51.1); MEAN CORPUSCULAR HEMOGLOBIN 24 pg (27-31); MEAN CORPUSCULAR HGB CONC 32 g/dL (33-37); MEAN CORPUSCULAR VOLUME 75.7 fL (80-94); MONOCYTES # (AUTO) 0.5 K/uL (0.8-1.0); MONOCYTES % (AUTO) 7.6 % (1.7-9.3); NEUTROPHILS # (AUTO) 4.8 K/uL (1.8-7.7); NEUTROPHILS % (AUTO) 72.7 % (42.2-75.2); PLATELET COUNT (AUTO) 243 K/uL (140-450); RED BLOOD CELL COUNT(AUTO) 4.68 MIL/uL (4.20-5.40); RED CELL DISTRIBUTION WIDTH 15.6 % (11.6-13.7); WHITE BLOOD COUNT (AUTO) 6.6 K/uL (4.8-10.8)
[2022-12-13 13:30] LABS: BILIRUBIN,URINE NEGATIVE (NEGATIVE); BLOOD, URINE 1+ (NEGATIVE); COLOR,URINE YELLOW (YELLOW); LEUKOCYTE ESTERASE ,URINE TRACE (NEGATIVE); NITRITE, URINE NEGATIVE (NEGATIVE); PROTEIN,URINE TRACE (NEGATIVE); UGLUCOSE NEGATIVE (NEGATIVE); UROBILINOGEN,URINE 0.2 EU/dL (0.2 - 1)
[2022-12-13 13:47] LABS: ANION GAP 8.4 (8-16); CALCIUM 9.3 mg/dL (8.5-10.1); CARBON DIOXIDE 29.4 mmol/L (21-32); CREATININE 0.6 mg/dL (0.6-1.3); FREE T4 (FREE THYROXINE) 1.47 ng/dL (0.76-1.46); POTASSIUM 3.8 mmol/L (3.5-5.1); THYROID STIMULATING HORMONE 0.68 uIU/mL (0.34-3.74); TOTAL BILIRUBIN 0.5 mg/dL (0.0-1.0); TOTAL PROTEIN, SERUM 8.8 g/dL (6.4-8.2)
[2022-12-13] MEDS ORDERED: MECL-303 PO (13:50)
[2022-12-13 14:07] LABS: BACTERIA,URINE FEW /HPF (None Seen)
[2022-12-13 14:08] LABS: APPEARANCE,URINE HAZY (CLEAR); MUCUS,URINE 1+ /LPF (None Seen)
[2022-12-13 14:30] VITALS: BP 119/76; PULSE 78; RESP 18; TEMP 98.2; O2SAT 98
== END 2022-12-13 14:30 | disposition home or self-care (01) ==
LOC: MED 11:08
DX: R42 Dizziness and giddiness (principal); R11.2 Nausea with vomiting, unspecified; R53.1 Weakness; R51.9 Headache, unspecified; E03.9 Hypothyroidism, unspecified; Z79.899 Other long term (current) drug therapy; Z79.1 Long term (current) use of non-steroidal anti-inflammatories (NSAID); Z79.2 Long term (current) use of antibiotics
CPT/HCPCS: 36415; 80053; 81001; 81025; 83690; 84439; 84443; 85025; 93005; 96361; 96374; 99284; J2405; 87086

== ENCOUNTER 2022-12-29 12:12 | Emergency (ER) | payer MEDICAID ==
[~2022-12-29] VITALS: Ht 157.5 cm; Wt 65.8 kg
[~2022-12-29 12:12] MED LIST changes: +MECL-303 PO
[2022-12-29 12:44] VITALS: BP 124/70; PULSE 79; RESP 18; TEMP 97.6; O2SAT 98
[2022-12-29] MEDS ORDERED: ONDANSETRON 4 MG/2 ML VIAL IVP ONE (13:35)
[2022-12-29] MEDS ORDERED: NACL 0.9% 1,000 ML IV SCH (13:35)
[2022-12-29 14:15] VITALS: O2SAT 98
[2022-12-29 14:30] LABS: BASOPHILS % (AUTO) 0.4 % (0.0-2.0); EOSINOPHILS % (AUTO) 0.2 % (0.0-4.0); HEMATOCRIT 34.9 % (36-48); HEMOGLOBIN 11.3 g/dL (12.0-16.0); LYMPHOCYTES # (AUTO) 0.7 K/uL (2.5-16.5); LYMPHOCYTES % (AUTO) 6.7 % (20.5-51.1); MEAN CORPUSCULAR HEMOGLOBIN 24 pg (27-31); MEAN CORPUSCULAR HGB CONC 32 g/dL (33-37); MONOCYTES # (AUTO) 0.4 K/uL (0.8-1.0); MONOCYTES % (AUTO) 3.3 % (1.7-9.3); NEUTROPHILS # (AUTO) 9.8 K/uL (1.8-7.7); NEUTROPHILS % (AUTO) 89.4 % (42.2-75.2); PLATELET COUNT (AUTO) 201 K/uL (140-450); RED BLOOD CELL COUNT(AUTO) 4.65 MIL/uL (4.20-5.40); RED CELL DISTRIBUTION WIDTH 15.5 % (11.6-13.7)
[2022-12-29 14:44] LABS: ANION GAP 14.1 (8-16); CALCIUM 8.9 mg/dL (8.5-10.1); CARBON DIOXIDE 26.5 mmol/L (21-32); CREATININE 0.6 mg/dL (0.6-1.3); POTASSIUM 3.6 mmol/L (3.5-5.1)
[2022-12-29] MEDS ORDERED: ONDANSETRON 4 MG/2 ML VIAL ONE (14:49)
[2022-12-29] MEDS ORDERED: ONDA-188 PO (15:01)
[2022-12-29] MEDS ORDERED: ACET-10509 PO (15:01)
[2022-12-29 15:08] VITALS: O2SAT 98
[2022-12-29 15:45] LABS: BILIRUBIN,URINE NEGATIVE (NEGATIVE); BLOOD, URINE 1+ (NEGATIVE); COLOR,URINE YELLOW (YELLOW); LEUKOCYTE ESTERASE ,URINE NEGATIVE (NEGATIVE); NITRITE, URINE NEGATIVE (NEGATIVE); PH,URINE 5.5 (5.0-9.0); PROTEIN,URINE 1+ (NEGATIVE); UGLUCOSE NEGATIVE (NEGATIVE); UROBILINOGEN,URINE 0.2 EU/dL (0.2 - 1)
[2022-12-29 15:49] LABS: APPEARANCE,URINE CLOUDY (CLEAR); BACTERIA,URINE FEW /HPF (None Seen); RBC,URINE 0-5 /HPF (0-5); SQUAMOUS EPITHELIAL CELL,UR 4-10 (MOD) /LPF (0-3 (FEW)); WBC,URINE 0-5 /HPF (0-5)
[2022-12-29 15:50] LABS: URINE AMORPHOUS URATE 3+ /HPF (None Seen)
== END 2022-12-29 15:09 | disposition home or self-care (01) ==
LOC: MED 12:12
DX: R51.9 Headache, unspecified (principal); H57.13 Ocular pain, bilateral; R11.2 Nausea with vomiting, unspecified; E03.9 Hypothyroidism, unspecified; Z79.899 Other long term (current) drug therapy
CPT/HCPCS: 36415; 80048; 81001; 81025; 85025; 96361; 96374; 99283; J2405; J7030

== ENCOUNTER 2023-06-08 13:01 | Emergency (ER) | payer MEDICAID ==
[~2023-06-08] VITALS: Ht 160 cm; Wt 66.8 kg
[~2023-06-08 13:01] MED LIST changes: +ONDA-188 PO
[2023-06-08 13:05] VITALS: BP 107/71; PULSE 72; TEMP 97.9; O2SAT 100
[2023-06-08 14:02] LABS: BASOPHILS # (AUTO) 0.1 K/uL (0.00-0.22); BASOPHILS % (AUTO) 0.6 % (0.0-2.0); EOSINOPHILS # (AUTO) 0.1 K/uL (0-0.4); EOSINOPHILS % (AUTO) 1.8 % (0.0-4.0); HEMATOCRIT 35.2 % (36-48); HEMOGLOBIN 11.7 g/dL (12.0-16.0); LYMPHOCYTES # (AUTO) 1.6 K/uL (2.5-16.5); LYMPHOCYTES % (AUTO) 20.5 % (20.5-51.1); MEAN CORPUSCULAR HEMOGLOBIN 23 pg (27-31); MEAN CORPUSCULAR HGB CONC 33 g/dL (33-37); MONOCYTES # (AUTO) 0.6 K/uL (0.8-1.0); NEUTROPHILS # (AUTO) 5.4 K/uL (1.8-7.7); NEUTROPHILS % (AUTO) 69.1 % (42.2-75.2); PLATELET COUNT (AUTO) 308 K/uL (140-450); RED BLOOD CELL COUNT(AUTO) 5.03 MIL/uL (4.20-5.40); RED CELL DISTRIBUTION WIDTH 17.7 % (11.6-13.7); WHITE BLOOD COUNT (AUTO) 7.9 K/uL (4.8-10.8)
[2023-06-08 14:10] LABS: ANION GAP 11.7 (8-16); CALCIUM 8.6 mg/dL (8.5-10.1); CARBON DIOXIDE 27.5 mmol/L (21-32); CREATININE 0.5 mg/dL (0.6-1.3); POTASSIUM 4.2 mmol/L (3.5-5.1)
[2023-06-08 14:21] LABS: BILIRUBIN,URINE NEGATIVE (NEGATIVE); BLOOD, URINE TRACE-I (NEGATIVE); COLOR,URINE YELLOW (YELLOW); LEUKOCYTE ESTERASE ,URINE 2+ (NEGATIVE); NITRITE, URINE NEGATIVE (NEGATIVE); PROTEIN,URINE NEGATIVE (NEGATIVE); UGLUCOSE NEGATIVE (NEGATIVE); UROBILINOGEN,URINE 0.2 EU/dL (0.2 - 1)
[2023-06-08 14:27] LABS: APPEARANCE,URINE CLOUDY (CLEAR)
[2023-06-08 14:30] VITALS: O2SAT 100
[2023-06-08 14:36] LABS: BACTERIA,URINE 10-30 (MOD) /HPF (None Seen); RBC,URINE 0-5 /HPF (0-5); SQUAMOUS EPITHELIAL CELL,UR 4-10 (MOD) /LPF (0-3 (FEW))
== END 2023-06-08 15:36 | disposition home or self-care (01) ==
LOC: MED 13:01
DX: D50.9 Iron deficiency anemia, unspecified (principal); E03.9 Hypothyroidism, unspecified; Z79.899 Other long term (current) drug therapy
CPT/HCPCS: 36415; 80048; 81001; 81025; 82948; 84443; 85025; 87086; 99283

== ENCOUNTER 2023-09-28 22:27 | Emergency (ER) | payer MEDICAID ==
[~2023-09-28] VITALS: Ht 160 cm; Wt 63.5 kg
[2023-09-28 22:45] VITALS: BP 131/79; PULSE 76; RESP 16; TEMP 97.7; O2SAT 100
[2023-09-29] MEDS: KETOROLAC 60 MG/2 ML VIAL IM ONE (00:14)
[2023-09-29 00:15] LABS: APPEARANCE,URINE CLEAR (CLEAR); BILIRUBIN,URINE NEGATIVE (NEGATIVE); BLOOD, URINE TRACE-I (NEGATIVE); COLOR,URINE YELLOW (YELLOW); LEUKOCYTE ESTERASE ,URINE NEGATIVE (NEGATIVE); NITRITE, URINE NEGATIVE (NEGATIVE); PROTEIN,URINE NEGATIVE (NEGATIVE); UGLUCOSE NEGATIVE (NEGATIVE); UROBILINOGEN,URINE 0.2 EU/dL (0.2 - 1)
[2023-09-29 00:23] LABS: BACTERIA,URINE >30 (MANY) /HPF (None Seen); MUCUS,URINE 1+ /LPF (None Seen); SQUAMOUS EPITHELIAL CELL,UR 4-10 (MOD) /LPF (0-3 (FEW))
[2023-09-29] MEDS ORDERED: MIRABULK PO (01:37)
[2023-09-29] MEDS ORDERED: NAPR-1704 PO (01:37)
[2023-09-29] MEDS ORDERED: MAGN296S48 PO (01:37)
[2023-09-29 01:43] VITALS: BP 131/79; PULSE 76; RESP 16; TEMP 97.7; O2SAT 100
== END 2023-09-29 01:43 | disposition home or self-care (01) ==
LOC: MED 22:27
DX: K59.00 Constipation, unspecified (principal); Z86.39 Personal history of other endocrine, nutritional and metabolic disease; Z79.899 Other long term (current) drug therapy
CPT/HCPCS: 74018; 76856; 81001; 81025; 87086; 96372; 99285; J1885; Q0092